=== PATIENT | male | born 1975 | race Hispanic/Latino ===

== ENCOUNTER 2018-02-12 12:06 | Emergency (ER) | payer OTHER ==
[2018-02-12 12:51] VITALS: TEMP 97.6; O2SAT 100
[2018-02-12 13:38] LABS: BASO # 0.1 K/uL (0.0-0.2); BASO % 1.2 % (0.0-2.0); EOS % 0.8 % (0.0-4.0); HEMOGLOBIN 15.3 g/dL (12.0-18.0); LYMPH # 1.7 K/uL (1.0-4.3); LYMPH % 32.9 % (20.0-40.0); MEAN CELL VOLUME 96.1 fl (80.0-94.0); MEAN CORPUSCULAR HEMOGLOBIN 31.9 pg (27.0-31.0); MEAN CORPUSCULAR HGB CONC 33.2 g/dL (33.0-37.0); MEAN PLATELET VOLUME 9.2 fl (7.2-11.7); MONO # 0.5 K/uL (0.0-0.8); NEUT # 2.8 K/uL (1.8-7.0); NEUT % 55.1 % (50.0-75.0); NRBC % 0.1 % (0.0-0.0); RBC 4.8 Mil/uL (4.40-5.90); RED CELL DISTRIBUTION WIDTH 13.5 % (11.5-14.5)
[2018-02-12 13:48] LABS: ALB/GLOB RATIO 1.5 (1.0-2.1); ALBUMIN 3.8 g/dL (3.5-5.0); ALT/SGPT 35 U/L (21-72); AST/SGOT 22 U/L (17-59); BLOOD UREA NITROGEN 14 mg/dl (9-20); CALCIUM 8.7 mg/dL (8.4-10.2); GFR AFRICAN-AMERICAN > 60; GFR NON-AFRICAN AMERICAN > 60
--- NOTE | 2018-02-12 13:54 | CT ---
PROCEDURE: CT HEAD WITHOUT CONTRAST. HISTORY: blurred vision x 2 episodes COMPARISON: None available. TECHNIQUE: Axial computed tomography images were obtained through the head/brain without intravenous contrast. Radiation dose: Total exam DLP = 970.95 mGy-cm. This CT exam was performed using one or more of the following dose reduction techniques: Automated exposure control, adjustment of the mA and/or kV according to patient size, and/or use of iterative reconstruction technique. FINDINGS: HEMORRHAGE: No acute parenchymal, subarachnoid or extra-axial intracranial hemorrhage. BRAIN: No mass effect or edema. No atrophy or chronic microvascular ischemic changes. VENTRICLES: No obstructive hydrocephalus. CALVARIUM: No acute calvarial fractures. PARANASAL SINUSES: Unremarkable as visualized. No significant inflammatory changes. MASTOID AIR CELLS: Unremarkable as visualized. No inflammatory changes. OTHER FINDINGS: None. IMPRESSION: No acute intracranial hemorrhage.
--- NOTE | 2018-02-12 14:42 | ED PDOC ---
HPI: Eye Injury/Pain Time Seen by Provider: 02/12/18 12:17 Chief Complaint (Nursing): Weakness/Neurological Deficit Chief Complaint (Provider): Blurry vision History Per: Patient History/Exam Limitations: no limitations Onset/Duration Of Symptoms: Hrs Current Symptoms Are (Timing): Still Present Additional Complaint(s): 43yo male, otherwise healthy, with history of headaches, presents to ED with complaints of blurry vision. Patient was at home in his shower when he noticed blurry vision bilaterally; patient then corrected statement and reports the blurry vision was present only in his left eye. He states the episode lasted for 10 minutes and resolved of its own. Patient went back to work and a while later, the symptoms returned and included "flashing lights" in his left eye. He felt nervous and decided to come to ER; states on his walk to the ER, the vision change again resolved of its own. Patient is currently asymptomatic and denies any weakness, numbness, speech difficulty, chest pain, shortness of breath. He also denies any headache, nausea or vomiting. He has no other complaints. Past Medical History Reviewed: Historical Data, Nursing Documentation, Vital Signs Vital Signs: Last Vital Signs Temp 97.6 F 02/12/18 12:48 Pulse 56 L 02/12/18 12:48 Resp 16 02/12/18 12:48 BP 93/49 L 02/12/18 12:48 Pulse Ox 100 02/12/18 12:48 - Medical History PMH: No Chronic Diseases - Surgical History Surgical History: No Surg Hx - Family History Family History: States: No Known Family Hx - Allergies Allergies/Adverse Reactions: Allergies Allergy/AdvReac Type Severity Reaction Status Date / Time No Known Allergies Allergy Verified 02/12/18 12:48 Review of Systems ROS Statement: Except As Marked, All Systems Reviewed And Found Negative Eyes: Positive for: Vision Change (not currently present; 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) Cardiovascular: Negative for: Chest Pain Respiratory: Negative for: Shortness of Breath Gastrointestinal: Negative for: Nausea, Vomiting Neurological: Negative for: Weakness, Numbness, Headache Physical Exam - Reviewed Nursing Documentation Reviewed: Yes Vital Signs Reviewed: Yes - Physical Exam Appears: Positive for: Non-toxic, No Acute Distress Head Exam: Positive for: ATRAUMATIC, NORMAL INSPECTION, NORMOCEPHALIC Skin: Positive for: Normal Color Eye Exam: Positive for: EOMI, PERRL Neck: Positive for: Supple Cardiovascular/Chest: Positive for: Regular Rate, Rhythm Respiratory: Positive for: Normal Breath Sounds Gastrointestinal/Abdominal: Positive for: Normal Exam, Soft. Negative for: Tenderness Extremity: Positive for: Normal ROM Neurologic/Psych: Positive for: Alert, Oriented. Negative for: Motor/Sensory Deficits, Facial Droop - Laboratory Results Result Diagrams: 02/12/18 13:30 02/12/18 13:30 - ECG O2 Sat by Pulse Oximetry: 100 (RA) Pulse Ox Interpretation: Normal Medical Decision Making Medical Decision Making: Impression: Transient blurry vision in left eye Differential: Vitreous hemorrhage, retinal detachment, migraine headache Plan: -- CT Head -- Labs -- EKG -- Haldol 5mg IM -- Ativan 2mg IM Fundoscopic exam: -- Retinal vessels visualized bilaterally, and are normal. No fundoscopic abnormalities noted. No vitreous abnormalities noted. Time: 1352 CT Head FINDINGS: HEMORRHAGE: No acute parenchymal, subarachnoid or extra-axial intracranial hemorrhage. BRAIN: No mass effect or edema. No atrophy or chronic microvascular ischemic changes. VENTRICLES: No obstructive hydrocephalus. CALVARIUM: No acute calvarial fractures. PARANASAL SINUSES: Unremarkable as visualized. No significant inflammatory changes. MASTOID AIR CELLS: Unremarkable as visualized. No inflammatory changes. OTHER FINDINGS: None. IMPRESSION: No acute intracranial hemorrhage. Time: [address] Vences who will follow up with patient tomorrow at 10 AM in his office. Scribe Attestation: Documented by Rkia Barbosa acting as a scribe for Evonne Webster MD. Provider Attestation: All medical record entries made by the Scribe were at my direction and personally dictated by me. I have reviewed the chart and agree that the record accurately reflects my personal performance of the history, physical exam, medical decision making, and the department course for this patient. I have also personally directed, reviewed, and agree with the discharge instructions and disposition. Disposition - Clinical Impression Clinical Impression: Transient vision disturbance of left eye - Patient ED Disposition Is Patient to be Admitted: No Doctor Will See Patient In The: Office Counseled Patient/Family Regarding: Diagnosis, Need For Followup - Disposition Referrals: [facility] [Outside] Len Vences MD [Staff Provider] - 02/13/18 10:00 am Disposition: Routine/Home Disposition Time: 15:13 Condition: STABLE Forms: [facility] (Maltese), [facility] ED School/Work Excuse - POA Present On Arrival: None
[2018-02-12 15:33] VITALS: BP 102/61; PULSE 60; RESP 14
--- NOTE | 2018-02-12 15:53 | CARD ---
APPROVED REPORT EKG Measurement Heart [id number] ID [id number] <Conclusion> Sinus bradycardia Incomplete right bundle branch block Borderline ECG
== END 2018-02-12 15:31 | disposition home or self-care (01) ==
LOC: H.ER 12:06
DX: H53.129 Transient visual loss, unspecified eye (principal)